=== PATIENT | female | born 1990 | race American Indian/Alaskan Native ===

== ENCOUNTER 2018-08-12 17:47 | Inpatient (IN) | payer MEDICAID ==
[2018-08-12] MEDS ORDERED: TYLENOL PO PRN (20:09)
[2018-08-12] MEDS ORDERED: COLACE PO PRN (20:09)
--- NOTE | 2018-08-12 20:15 | Ultrasound Report ---
FINAL REPORT PROCEDURE: US OB BPP WO NON-STRESS TECHNIQUE: Sonographic evaluation for breathing, movement, tone, and amniotic fluid volume was performed. CPT 98651 HISTORY: wellbeing COMPARISON: No prior studies are available for comparison. FINDINGS: Amniotic fluid volume: Normal-score 2. At least one vertical pocket > 2 cm or more in vertical axis. breathin movement: Normal-score 2. tone: Normal. Score: 8 of 8. heart rate 169 beats per minute. Subjectively the amount of amniotic fluid appears normal. IMPRESSION: Biophysical profile score 6/8. Score of 0 for breathing. heart rate 169 beats per minute. Further evaluation was neither requested nor performed.
[2018-08-12] MEDS: LACTATED RINGERS 1,000 ML IV SCH (21:00)
[2018-08-13 00:01] LABS: Basophils # (Auto) 0.1 K/mm3 (0.0-0.1); Eosinophils # (Auto) 0.1 K/mm3 (0.0-0.4); Eosinophils % (Auto) 0.8 % (0.0-4.3); Hematocrit 37.6 % (30.3-42.9); Lymphocytes # (Auto) 2.2 K/mm3 (1.2-5.4); Lymphocytes % (Auto) 27.9 % (13.4-35.0); Mean Corpuscular HGB Conc 32 % (30-34); Mean Corpuscular Hemoglobin 24 pg (28-32); Mean Corpuscular Volume 77 fl (79-97); Monocytes # (Auto) 0.7 K/mm3 (0.0-0.8); Monocytes % (Auto) 9.1 % (0.0-7.3); Platelet Count 249 K/mm3 (140-440); Red Blood Count 4.91 M/mm3 (3.65-5.03); Red Cell Distribution Width 16.3 % (13.2-15.2)
[2018-08-13] MEDS: LACTATED RINGERS 1,000 ML IV SCH ×2 (04:42→15:23)
--- NOTE | 2018-08-13 08:44 | Ultrasound Report ---
ULTRASOUND BIOPHYSICAL PROFILE: History: well being Technique: Transabdominal ultrasound with Doppler interrogation. 2 - breathing movements 2 - movements 2 - posture and tone 2 - Qualitative amniotic fluid volume 8 - TOTAL SCORE OF POSSIBLE 8 Heart Rate (bpm) 138
[2018-08-13] MEDS ORDERED: XYLOCAINE 2% INFILTRATI ONE (09:19)
[2018-08-13] MEDS ORDERED: MINERAL OIL PO PRN (09:19)
[2018-08-13] MEDS ORDERED: NARCAN 0.4 MG/1 ML IV PRN ×3 (09:19→16:59)
[2018-08-13] MEDS ORDERED: STADOL IV PRN (09:19)
[2018-08-13] MEDS ORDERED: BRETHINE IVP PRN (09:19)
[2018-08-13] MEDS ORDERED: BRETHINE SUB-Q PRN (09:19)
[2018-08-13] MEDS ORDERED: ZOFRAN IV PRN (09:19)
[2018-08-13] MEDS ORDERED: SUBLIMAZE IV PRN (09:19)
[2018-08-13] MEDS ORDERED: PHENERGAN PO PRN (09:19)
--- NOTE | 2018-08-13 09:27 | History and Physical Report ---
History of Present Illness Date of examination: 08/13/18 Date of admission: 08/12/18 Chief complaint: contractions History of present illness: This is a 28 yo at 40 weeks EDC 08/13/18 came in last night for contractions. patient noted to be 0.5cm. cat 2 so BPP ordered which was 6/8. Strip improved to cat 1 and BPP this am was 8/8. Patient checked this morning and dilated to 4/80/-2 and srom with light meconium. At this time it was noted and patient will be augmented with pitocin. She is a patient of [facility] with care starting at 13 weeks. 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 Allergic to seafood and iodine. patient has had non compliant care from 22 weeks to 30 weeks. Past History Past Medical History: no pertinent history Family/Genetic History: diabetes (father and mother), hypertension (father and mother) Social history: no significant social history, single. denies: smoking, alcohol abuse, prescription drug abuse - Obstetrical History Expected Date of Delivery: 08/13/18 Actual Gestation: 40 Week(s) 0 Day(s) : 2 Para: 1 Hx # Term Pregnancies: 1 Number of Pregnancies: 0 Spontaneous Abortions: 1 Induced : 0 Number of Living Children: 0 Medications and Allergies Allergies Allergy/AdvReac Type Severity Reaction Status Date / Time shellfish derived Allergy Swelling Verified 08/23/13 04:49 Home Medications Medication Instructions Recorded Confirmed Last Taken Type Bisacodyl [Dulcolax] 10 mg PO BID 07/07/14 07/07/14 07/07/14 History Ferrous Sulfate [Feosol] 325 mg PO BID 07/07/14 07/07/14 07/07/14 History Furosemide [Lasix] 20 mg PO DAILY #7 tablet 07/07/14 Unknown Rx Ibuprofen [Motrin] 800 mg PO Q8H PRN 07/07/14 07/07/14 07/06/14 History Vits96/Iron Fum/Folic 1 each PO QDAY 07/07/14 07/07/14 07/07/14 History [ Tablet] oxyCODONE /ACETAMINOPHEN [Percocet 1 tab PO Q6HR PRN 07/07/14 07/07/14 07/07/14 History 5/325] ALBUTEROL Inhaler (OR & NICU) 1 - 2 puff IH QID #1 inha 05/26/15 Unknown Rx [ProAir HFA Inhaler] Cetirizine HCl [ZyrTEC] 10 mg PO QDAY #30 capsule 05/26/15 Unknown Rx Fluticasone [Flonase] 1 spray NS QDAY #1 bottle 05/26/15 Unknown Rx methylPREDNISolone [Medrol Dose 4 mg PO .TAPER #1 pack 05/26/15 Unknown Rx Yonis] Active Meds: Active Medications Acetaminophen (Tylenol) 650 mg PO Q4H PRN PRN Reason: Pain MILD(1-3)/Fever >100.5/FOX Docusate Sodium (Colace) 100 mg PO Q12H PRN PRN Reason: Constipation Lactated Ringer's (Lactated Ringers) 1,000 mls @ 125 mls/hr IV DIRECT DC Last Admin: 08/13/18 04:42 Dose: 125 mls/hr Multivitamins/Iron/Calcium ( Vitamin) 1 each PO QDAY DC Review of Systems All systems: negative Genitourinary: contractions - Vital Signs Vital signs: Vital Signs Temp Pulse Resp BP Pulse Ox 98.5 F 113 H 20 122/75 94 08/12/18 18:02 08/12/18 18:02 08/12/18 18:02 08/12/18 18:02 08/12/18 18:02 Temp Pulse Resp BP Pulse Ox 98.0 F 90 16 120/76 99 08/12/18 22:43 08/13/18 09:12 08/12/18 22:43 08/13/18 09:05 08/13/18 09:12 - Physical Exam Breasts: Positive: normal Cardiovascular: Regular rate, Normal S1 Lungs: Positive: Clear to auscultation, Normal air movement Abdomen: Positive: normal appearance, soft, normal bowel sounds. Negative: distention, tenderness Genitourinary (Female): Positive: normal external genitalia, normal perenium Cervix: Negative: lesion Anus/Rectum: Positive: normal perianal skin Extremities: Positive: normal Deep Tendon Reflex Grade: Normal +2 - Obstetrical FHR: category 1 Cervical Dilatation: 4 Cervical Effacement Percentage: 80 station: -2 Uterine Contraction Pattern: Regular Uterine Tone Measurement Phase: Contraction Uterine Contraction Intensity: Moderate Results Result Diagrams: 08/12/18 21:00 Abnormal lab results 08/12/18 Range/Units 21:00 MCV 77 L (79-97) fl MCH 24 L (28-32) pg RDW 16.3 H (13.2-15.2) % [place] % (Auto) 9.1 H (0.0-7.3) % All other labs normal. Assessment and Plan A/P IUP 40 weeks term, vertex GBS neg no abx needed labor/srom augment with pitocin offer epidural xpect vaginal delivery
[2018-08-13] MEDS ORDERED: LACTATED RINGERS 1,000 ML IV SCH (10:00)
[2018-08-13] MEDS ORDERED: PITOCin/NS 20 UNIT/1000ML DRIP 20 UNITS/1,000 ML BAG IV SCH ×2 (10:00→17:00)
[2018-08-13] MEDS ORDERED: PITOCin/NS 30 UNIT/500ML 30 UNITS/500 ML BAG IV SCH ×2 (10:00)
[2018-08-13 10:25] LABS: Hematocrit 35.8 % (30.3-42.9); Hemoglobin 11.4 gm/dl (10.1-14.3); Mean Corpuscular HGB Conc 32 % (30-34); Mean Corpuscular Volume 76 fl (79-97); Platelet Count 220 K/mm3 (140-440); Red Cell Distribution Width 16.3 % (13.2-15.2)
[2018-08-13 10:26] LABS: Mean Corpuscular Hemoglobin 24 pg (28-32)
--- NOTE | 2018-08-13 11:53 | Event Note ---
Date: 08/13/18 I was contacted by nurse Blakely for internals. Patient is morbidly obese and difficult to keep baby on the monitor. FSE and IUPC placed without diffliculty. start pitocin and prepare for epidural. SVE /-2
[2018-08-13] MEDS ORDERED: NARCAN 2 MG/2 ML IV PRN (13:09)
--- NOTE | 2018-08-13 13:09 | Anesthesia Consultation ---
Anesthesia Consult and Med Hx Date of service: 08/13/18 - Airway Anesthetic Teeth Evaluation: Good ROM Head & Neck: Adequate Mental/Hyoid Distance: Adequate Mallampati Class: Class III Intubation Access Assessment: Possibly Difficult - Pre-Operative Health Status ASA Pre-Surgery Classification: ASA3 Proposed Anesthetic Plan: Epidural, Spinal - Pulmonary Hx Asthma: Yes (last episode 2 yrs ago controlled with inhaler) COPD: No Hx Pneumonia: No - Cardiovascular System Hx Hypertension: Yes (mild HTN during 1st ) Hx Pacemaker: No Hx Internal Defibrillator: No - Central Nervous System Hx Seizures: No Hx Psychiatric Problems: No - Endocrine Hx Renal Disease: No Hx End Stage Renal Disease: No Hx Hypothyroidism: No Hx Hyperthyroidism: No - Hematic Hx Anemia: No Hx Sickle Cell Disease: No - Other Systems Hx Alcohol Use: Yes (occas social) Hx Obesity: Yes (BMI 50.8)
[2018-08-13] MEDS ORDERED: fentaNYL-BUPIV 2 MCG/ML-0.125% 200 MCG/100 ML BAG EPIDURAL SCH (14:00)
[2018-08-13] MEDS ORDERED: NACL 0.9% 1000 ML 1,000 ML ONE (15:32)
--- NOTE | 2018-08-13 15:40 | Event Note ---
Date: 08/13/18 I received call from RN stating patient was having variable decls and early decles sve7/90/-2 will add amnioinfusion continue pitocin with close monitor of maternal and status
[2018-08-13] MEDS ORDERED: NACL 0.9% 1000 ML 1,000 ML VG SCH (16:00)
[2018-08-13] MEDS ORDERED: REGLAN ONE (16:03)
[2018-08-13] MEDS ORDERED: PEPCID IV ONE (16:03)
[2018-08-13] MEDS ORDERED: WATER FOR IRRIG STERILE IR ONE (16:10)
[2018-08-13] MEDS ORDERED: NACL 0.9% IR ONE (16:10)
[2018-08-13] MEDS ORDERED: NEO SYNEPHRINE/NS Syringe(OR USE) IV ONE (16:23)
[2018-08-13] MEDS ORDERED: XYLOCAINE MPF 2% ONE ×4 (16:27)
[2018-08-13] MEDS ORDERED: NACL 0.9% 1000 ML 0 ML ONE (16:48)
[2018-08-13] MEDS ORDERED: MILK OF MAGNESIA PO PRN (16:59)
[2018-08-13] MEDS ORDERED: TUCKS PAD TP PRN (16:59)
[2018-08-13] MEDS ORDERED: TORADOL IV PRN (16:59)
[2018-08-13] MEDS ORDERED: PERCOCET 5/325 PO PRN (16:59)
[2018-08-13] MEDS ORDERED: LANSINOH TP PRN (16:59)
[2018-08-13] MEDS ORDERED: NORCO 5/325 PO PRN (16:59)
[2018-08-13] MEDS ORDERED: SODIUM CHLORIDE FLUSH SYRINGE 10 ML IV NR (17:00)
[2018-08-13] MEDS ORDERED: D5LR 1,000 ML IV SCH (17:00)
--- NOTE | 2018-08-13 17:14 | Procedure Note ---
OB Delivery Note - Delivery Date of Delivery: 08/13/18 Surgeon: RUSTAM DEE Estimated blood loss: other (800cc) - Section Preop diagnosis: nonreassuring FHR tracing Postop diagnosis: same section procedure: section Disposition: PACU Complications: none Narrative: see op note - A at 1 minute: 8 at 5 minutes: 9 Infant Gender: Female
--- NOTE | 2018-08-13 17:18 | Operative Report ---
Operative Report Operative Report: DATE OF OPERATION: 08/13/2018 PREOPERATIVE DIAGNOSES: 1. Intrauterine gestation at 40 weeks 2. Morbid obesity 3. NRFHT 4. Meconium POSTOPERATIVE DIAGNOSES: 1-4 ANGUS 5. Nuchal cord and body cord OPERATION PERFORMED: Primary low transverse section. SURGEON: Serina Rahman MD ANESTHESIA: Epidural. COMPLICATIONS: None. ESTIMATED BLOOD LOSS: 800 mL. DRAINS: Mott catheter to the bladder. SPECIMENS TO PATHOLOGY: placenta sent OPERATIVE FINDINGS: A viable female with Apgars of 8 and 9 and birthweight of 7 pounds 14 ounces was delivered from a cephalic presentation The cord contained 3 vessels. There was normal anterior fundal placenta. The amniotic fluid was clear. The uterus, fallopian tubes and ovaries were normal. DESCRIPTION OF OPERATION: The patient was brought to the operating suite in stable condition with epidural anesthesia on board and an indwelling catheter in place in the bladder. The patient was placed supine on the operating room table and rolled to her left side with a wedge. The abdomen was prepped and draped in standard fashion for section. After testing with forceps to assure an adequate anesthetic level, the surgery was commenced. We had counseled the patient extensively regarding the risks of the surgery including but not limited to stroke, embolus, phlebitis, pain, infection, hemorrhage, as well as injury to the infant and the internal organs such as the bowel, bladder, blood vessels, nerves, kidneys, ureters and pelvic organs. The patient was aware of the postoperative morbidity issues and recovery timeframes. The patient was aware she can form adhesions, which can result in obstruction of loop of bowel or ureter or chronic pain. She was aware that should she have hemorrhage and require blood transfusion, there was a small chance for exposure to hepatitis or HIV disease. With the scalpel, a Pfannenstiel skin incision was made. Dissection was carried down sharply through the subcutaneous tissues and fascia in a transverse plane with the scalpel, electrocautery and curved Cardoso scissors. The fascia was sharply freed up superiorly and inferiorly from the underlying rectus muscles, which were bluntly and sharply divided. The peritoneum was entered carefully in a clear space with a curved hemostat. The peritoneal incision was then extended vertically with Metzenbaum scissors. A retractor and bladder blade were placed. A bladder flap was created by incising transversely through the peritoneum and vesicouterine fold and then bluntly dissecting the bladder distally. With the scalpel, a low transverse hysterotomy was commenced. The serosa and myometrium were scored with the scalpel. The uterine cavity was actually entered bluntly with a curved hemostat. The uterine incision was then extended laterally with the rail operator's fingers. An intrauterine hand was placed and the head of the infant was brought up out of the pelvis into the uterine incision. With fundal pressure, he was delivered without difficulty. The nasopharynx and oropharynx were suctioned. The cord was doubly clamped and transected. The infant was then handed off to the nursery personnel. Apgars were good at 8 and 9. A cord pH was obtained, which subsequently revealed a normal value. Further cord blood was collected for routine testing. Intravenous Pitocin and antibiotics were administered. The placenta was manually removed. The uterine cavity was then curetted with a dry sponge and freed of the remaining membranes. The edges of the uterine incision were grasped with Miller clamps. With the massage and the Pitocin, the uterus began to firm up normally. The uterine incision was then closed in 2 layers of 0 Vicryl sutures. The first suture was placed to the endometrium and myometrium. The second suture was placed through the endopelvic fascia and also reincorporated the bladder flap peritoneum. Peritoneal lavage was then performed. The pelvis and gutters were irrigated and suctioned and cleared of all blood and clots and amniotic fluid. The uterine incision was reinspected to assure hemostasis. The uterus, tubes and ovaries were inspected and were normal. Once we were satisfied with the hemostasis, attention was turned to closure of the abdominal incision. The peritoneum, muscles and fascia were closed in layers using 0-Vicryl sutures. The subcutaneous tissue was closed with 3-0 plain sutures. The skin was closed with a subcuticular suture of 4-0 Vicryl followed by benzoin, Steri-Strips and a Telfa dressing. The patient was moved to the recovery room in stable condition with the Mott catheter draining clear urine. Instruments, sponge and needle counts were reported as correct. Estimated blood loss was 800 mL. There were no complications.
[2018-08-13] MEDS ORDERED: ZOFRAN ONE (17:27)
[2018-08-13] MEDS: TORADOL IV PRN (17:35)
[2018-08-13] MEDS: MORPHINE IV PRN ×2 (17:35→20:17)
[2018-08-13] MEDS ORDERED: DILAUDID IV PRN (17:43)
[2018-08-14] MEDS: TORADOL IV PRN ×4 (00:56→17:55)
[2018-08-14 05:01] LABS: Hematocrit 30.5 % (30.3-42.9); Hemoglobin 9.8 gm/dl (10.1-14.3)
[2018-08-14] MEDS: PRENATAL VITAMIN PO SCH (09:58)
[2018-08-14] MEDS: MORPHINE IV PRN (09:58)
[2018-08-14] MEDS: FEOSOL PO SCH (09:58)
[2018-08-14] MEDS ORDERED: PERCOCET 5/325 PO PRN (11:21)
--- NOTE | 2018-08-14 11:25 | Progress Note ---
Assessment and Plan A: POD#1 s/p primary section, Poor pain control P:Change pain regimen. Begin bowel regimen. Encourage ambulation. Subjective - Subjective Date of service: 08/14/18 Principal diagnosis: s/p primary section, Morbid Obesity Interval history: Pt c/o poor pain control overnight. NO flatus yet. Ambulating Patient reports: voiding normally, pain poorly controlled, ambulating normally ( minimally ), no pain well controlled, no flatus, no bowel movement, no nauseated : doing well Objective - Vital Signs Latest vital signs: Vital Signs Temp Pulse Resp BP BP Pulse Ox 08/14/18 08:20 98.5 F 98 H 20 103/68 99 08/14/18 04:05 98.2 F 76 20 134/73 08/14/18 00:00 98.2 F 87 20 114/76 08/13/18 18:50 97.8 F 75 24 131/77 99 08/13/18 18:25 78 16 119/65 08/13/18 18:10 73 18 116/65 08/13/18 17:55 81 14 114/66 08/13/18 17:40 85 14 107/60 08/13/18 17:35 85 12 104/54 08/13/18 17:30 86 15 98/72 08/13/18 17:25 97.7 F 86 13 106/42 08/13/18 14:20 97.7 F 74 18 133/91 100 Intake and Output 08/13/18 08/14/18 08/14/18 22:59 06:59 14:59 Intake Total 2440 500 Output Total 1425 300 Balance 1015 -300 500 Intake: IV 2200 Oral 240 380 Intake, Free Water 120 Output: Urine 1425 300 Indwelling Catheter 1000 300 Other: Total, Intake Amount 240 380 Total, Output Amount 1000 300 Estimated Blood Loss 700 - Exam Breasts: Present: deferred Cardiovascular: Present: Regular rate Lungs: Present: Clear to auscultation Abdomen: Present: soft (obese ), abnormal bowel sounds (hypoactive ) Uterus: Present: fundal height at umbilicus Extremities: Present: edema (trace) - Labs Labs: Abnormal lab results 08/14/18 Range/Units 04:17 Hgb 9.8 L (10.1-14.3) gm/dl
[2018-08-14] MEDS: MYLICON PO PRN (11:48)
[2018-08-14] MEDS: PERCOCET 5/325 PO PRN ×3 (14:27→22:35)
[2018-08-14] MEDS ORDERED: BOOSTRIX IM ONE (17:03)
[2018-08-14] MEDS ORDERED: M-M-R II VACCINE SUB-Q ONE (17:03)
[2018-08-14] MEDS: MILK OF MAGNESIA PO SCH (19:37)
[2018-08-15] MEDS: MYLICON PO PRN (00:29)
[2018-08-15] MEDS: MORPHINE IV PRN (00:35)
[2018-08-15] MEDS: TORADOL IV PRN (00:35)
[2018-08-15] MEDS: PERCOCET 5/325 PO PRN (04:23)
[2018-08-15] MEDS: MOTRIN PO PRN ×2 (06:52→15:03)
[2018-08-15] MEDS: MILK OF MAGNESIA PO SCH ×3 (07:01→23:51)
[2018-08-15] MEDS ORDERED: PERCOCET 5/325 PO PRN (08:55)
[2018-08-15] MEDS: PRENATAL VITAMIN PO SCH (10:18)
[2018-08-15] MEDS: FEOSOL PO SCH (10:18)
[2018-08-15] MEDS: DILAUDID PO PRN ×4 (11:36→20:56)
--- NOTE | 2018-08-15 11:41 | Progress Note ---
Assessment and Plan VSS Af PP H/H: 9.8/30.5 A: Stable POD # 2 Post op Pain P: Change narcotic Subjective - Subjective Date of service: 08/15/18 Principal diagnosis: s/p primary section, Morbid Obesity Patient reports: appetite normal, voiding normally, flatus, pain poorly controlled, ambulating normally, other (c/o abd stabbing pain. Percocet releives only 2 hours. N/V. Tolerating diet), no pain well controlled [place]: doing well, nursing well Objective - Vital Signs Latest vital signs: Vital Signs Temp Pulse Resp BP BP Pulse Ox 08/15/18 08:07 98.7 F 98 H 18 118/70 08/14/18 22:35 18 08/14/18 17:16 98.4 F 120 H 18 122/82 99 Intake and Output 08/14/18 08/15/18 08/15/18 22:59 06:59 14:59 Intake Total 600 480 2 Output Total 800 Balance 600 -320 2 Intake: Oral 420 480 2 Intake, Free Water 180 Output: Urine 800 Void 800 Other: Total, Intake Amount 420 240 2 Total, Output Amount 400 - Exam Breasts: Present: Lungs: Present: Normal air movement Abdomen: Present: normal appearance, soft, tenderness (post op only). Absent: distention, rigidity Uterus: Present: normal, firm, fundal height below umbilicus. Absent: bogginess Extremities: Present: normal. Absent: edema Incision: Present: normal, dry, intact
[2018-08-16] MEDS: DILAUDID PO PRN ×6 (00:51→21:54)
[2018-08-16] MEDS: MILK OF MAGNESIA PO SCH (07:32)
--- NOTE | 2018-08-16 08:37 | Progress Note ---
Assessment and Plan A: POD#3 s/p primary section Poor pain control Delayed return of bowel function Difficulty Ambulating Morbid Obesity P: Maintain pain regimen with Motrin 800 mg of Dilaudid 2 mg when necessary Magnesium citrate once Provide Walker for assistance ambulating Continue to monitor clinically. Anticipate discharge tomorrow Subjective - Subjective Date of service: 08/16/18 Principal diagnosis: s/p primary section, Morbid Obesity Interval history: Patient is tearful during her interview. She feels she needs more assistance and she has received previously. She denies flatus. She is ambulating minimally with some difficulty to the bathroom. Her pain continues to be poorly controlled even on oral Dilaudid. Patient reports: voiding normally, pain poorly controlled, no flatus, no bowel movement, no ambulating normally [place]: doing well Objective - Vital Signs Latest vital signs: Vital Signs Temp Pulse Resp BP Pulse Ox 08/16/18 04:46 18 08/16/18 01:30 98.3 F 103 H 20 134/78 100 08/16/18 00:51 20 08/15/18 20:56 20 08/15/18 15:42 98.7 F 105 H 18 122/80 Intake and Output 08/15/18 08/16/18 08/16/18 22:59 06:59 14:59 Intake Total 480 240 Balance 480 240 Intake: Oral 480 240 Other: Total, Intake Amount 240 240 # Voids Void 1 1 - Exam Breasts: Present: deferred Cardiovascular: Present: Regular rate Lungs: Present: Clear to auscultation Abdomen: Present: soft (obese), abnormal bowel sounds (hypoactive ) Uterus: Present: fundal height below umbilicus Extremities: Present: edema (trace) Incision: Present: intact
[2018-08-16] MEDS ORDERED: CITRATE OF MAGNESIA PO NR (09:00)
[2018-08-16] MEDS: PRENATAL VITAMIN PO SCH (09:53)
[2018-08-16] MEDS: FEOSOL PO SCH (09:53)
[2018-08-16] MEDS: MOTRIN PO PRN ×2 (09:53→17:00)
[2018-08-17] MEDS: MOTRIN PO PRN ×2 (00:12→09:30)
[2018-08-17] MEDS: DILAUDID PO PRN ×2 (04:09→11:35)
[2018-08-17] MEDS: PRENATAL VITAMIN PO SCH (08:40)
[2018-08-17] MEDS: FEOSOL PO SCH (08:40)
[2018-08-17 09:06] VITALS: BP 124/88
--- NOTE | 2018-08-17 09:31 | Progress Note ---
Assessment and Plan POD 3 s/p ltcs, doing well. Patient stated that she still has a lot of pain, however she is walking, eating, passing flatus and has had a bowel movement Subjective - Subjective Principal diagnosis: s/p primary section, Morbid Obesity Patient reports: appetite normal, voiding normally, pain well controlled, flatus , bowel movement [place]: doing well Objective - Vital Signs Latest vital signs: Vital Signs Temp Pulse Resp BP BP Pulse Ox 08/17/18 08:05 98.4 F 93 H 22 124/88 97 08/17/18 04:09 18 08/17/18 00:12 20 08/17/18 00:00 98.6 F 79 18 102/68 08/16/18 21:54 18 08/16/18 16:28 98.6 F 110 H 18 128/91 Intake and Output 08/16/18 08/17/18 08/17/18 22:59 06:59 14:59 Intake Total 540 300 Balance 540 300 Intake: Oral 240 Intake, Free Water 300 300 Other: Total, Intake Amount 240 # Voids Void 1 # Bowel Movements 1 - Exam Breasts: Present: deferred Cardiovascular: Present: Regular rate, Normal S1, Normal S2 Lungs: Present: Clear to auscultation, Normal air movement Abdomen: Present: normal appearance, soft, normal bowel sounds, other (obese) Vulva: both: normal Uterus: Present: normal, firm Extremities: Present: normal Incision: Present: normal, dry, intact
--- NOTE | 2018-08-17 10:04 | Discharge Summary ---
Providers - Providers Date of Admission: 08/13/18 12:00 Date of discharge: 08/17/18 Attending physician: RUSTAM DEE MD Primary care physician: RUSTAM DEE MD Hospitalization Reason for admission: induction of labor Delivery: Procedure: repeat low transverse Episiotomy: none Laceration: none Incision: normal, dry, intact complications: none Discharge diagnosis: IUP at term delivered [place] baby: female Condition at discharge: Good Disposition: DC-01 TO HOME OR SELFCARE Plan - Discharge Medications Prescriptions: Docusate Sodium [Colace] 100 mg PO BID PRN #60 capsule PRN Reason: Constipation Ferrous Sulfate 325 mg PO BID #60 tablet.dr HYDROmorphone [Dilaudid] 2 mg PO Q6HR PRN #30 tablet PRN Reason: Pain , Severe (7-10) Ibuprofen [Motrin] 800 mg PO Q8HR PRN #30 tablet PRN Reason: Pain, Moderate (4-6) oxyCODONE /ACETAMINOPHEN [Percocet 5/325] 1 tab PO Q6HR PRN #40 tablet PRN Reason: Pain - Provider Discharge Summary Activity: routine, no sex for 6 weeks, no heavy lifting 4 weeks, no strenuous exercise Diet: routine Instructions: routine Additional instructions: [] Smoking cessation referral if applicable(refer to patient education folder for contact #) [] Refer to [facility] Booklet Call your doctor immediately for: * Fever > 100.5 * Heavy vaginal bleeding ( >1 pad per hour) * Severe persistent headache * Shortness of breath * Reddened, hot, painful area to leg or breast * Drainage or odor from incision. * Keep incision clean and dry at all times and follow doctor's instructions regarding bathing/showering - Follow up plan Follow up: RUSTAM DEE MD [Primary Care Provider] - 14 Days
== END 2018-08-17 16:30 | disposition home or self-care (01) | DRG 765 ==
LOC: TRG 17:47 → LD 21:15 → TRG 08-13 11:56 → LD 08-13 12:00 → OB 08-13 18:43
PROVIDERS: ADMIT Obstetrics & Gynecology; ATTEND Obstetrics & Gynecology
PROC: 10D00Z1 Extraction of Products of Conception, Low, Open Approach (ICD-10-PCS; principal; 2018-08-13)
PROC: 10H07YZ Insertion of Other Device into Products of Conception, Via Natural or Artificial Opening (ICD-10-PCS; 2018-08-13)
PROC: 3E0234Z Introduction of Serum, Toxoid and Vaccine into Muscle, Percutaneous Approach (ICD-10-PCS; 2018-08-14)
DX: O10.92 Unspecified pre-existing hypertension complicating childbirth (principal); Z68.43 Body mass index [BMI] 50.0-59.9, adult; O98.32 Other infections with a predominantly sexual mode of transmission complicating childbirth; E66.01 Morbid (severe) obesity due to excess calories; O99.52 Diseases of the respiratory system complicating childbirth; J45.909 Unspecified asthma, uncomplicated; O99.214 Obesity complicating childbirth; O99.314 Alcohol use complicating childbirth; O76 Abnormality in fetal heart rate and rhythm complicating labor and delivery; O77.0 Labor and delivery complicated by meconium in amniotic fluid; O99.02 Anemia complicating childbirth; O69.81X0 Labor and delivery complicated by cord around neck, without compression, not applicable or unspecified; Z37.0 Single live birth; Z71.3 Dietary counseling and surveillance; Z72.89 Other problems related to lifestyle; Z3A.40 40 weeks gestation of pregnancy; Z91.041 Radiographic dye allergy status; Z91.013 Allergy to seafood; Z79.899 Other long term (current) drug therapy; Z23 Encounter for immunization; A60.00 Herpesviral infection of urogenital system, unspecified; D64.9 Anemia, unspecified
CPT/HCPCS: 36415; 76819; 85014; 85018; 85025; 85027; 86592; 86850; 86900; 86901; 88307; 99211; C9250; G0463; J0595; J1885; J2270; J2370; J2405; J2590; J2765; J3105; J7030; J7120; J7121